=== PATIENT | female | born 1965 | race Caucasian/White ===

== ENCOUNTER 2024-12-18 08:32 | Outpatient (CLI) | payer MEDICARE, MEDICAID ==
[2024-12-18] VITALS (7 sets, daily range): BP systolic 128–145; BP diastolic 65–75; PULSE 87–105; RESP 18; O2SAT 97–100
[~2024-12-18] VITALS: Ht 162.6 cm; Wt 189.5 kg
[~2024-12-18 08:32] MED LIST: CHOL50004 PO; DOXE25CA3 PO; HYDR-3972 PO; LISI10TA27 PO; LORA1TAB PO; MONT-40 PO; ONDA-245 PO; ZOLP10TA5 PO
[2024-12-18] MEDS ORDERED: aminophylline 250mg/10ml inj. IV ONE (10:15)
[2024-12-18] MEDS: regadenoson 0.4mg/5ml syringe IV ONE (10:35)
--- NOTE | 2024-12-18 12:13 | RADIOLOGY REPORT ---
Procedure: NM NM JOLANTA SCAN Exam Date: 12/18/2024 08:51 AM Reason for study/Clinical History: ENCOUNTER FOR PREPROCEDURAL CARDIOVASCULAR EXAMINA Comparison Study: None Myocardial Perfusion Study with SPECT Technique: The patient received an intravenous injection of 8.6 mCi of technetium-99m sestamibi while at rest. After a short delay, SPECT tomographic images of the heart were obtained. The patient then went to the stress lab where they received an intravenous infusion of 0.[address] andard protocol. 33 mCi of technetium-99m sestamibi was injected intravenously immediately after the start of the lexiscan infusion. Gated SPECT tomographic images of the heart were acquired and processed. Findings: No reversible perfusion defect. End diastolic volume: 106 mL End systolic volume: 35 mL The left ventricular ejection fraction is 67 %. (normal greater than 50%) Impression: No reversible defect. The left ventricular ejection fraction is 67 %.
== END 2024-12-18 23:59 | disposition home or self-care (01) ==
LOC: NM 08:32
PROVIDERS: ATTEND Nurse Practitioner Family
DX: Z01.810 Encounter for preprocedural cardiovascular examination (principal); J45.40 Moderate persistent asthma, uncomplicated
CPT/HCPCS: 78452; 93017; A9500; J0280; J2785

== ENCOUNTER 2024-12-30 14:49 | Outpatient (CLI) | payer MEDICARE, MEDICAID ==
--- NOTE | 2024-12-30 18:48 | CARDIOLOGY REPORT ---
APPROVED REPORT EXAM: Comprehensive 2D, Doppler, and color-flow Echocardiogram. Patient Location: OUT-PATIENT Blood Pressure: 109 / 54 mmHg Heart Rate: 70-80's bpm Indications SHORT OF BREATH ASTHMA PRE-OP GASTRIC SLEEVE Transportation Broker: Abigail Rodriguez MD Previous echo: NONE 2D Dimensions RVDd 3.6 cm LVDd 5.3 cm LVOT Diameter 1.95 (1.8-2.4cm) M-Mode Dimensions Left Atrium(MM) 3.78 (2.5-4.0cm) IVSd 0.86 (0.7-1.1cm) LVDd 5.02 (4.0-5.6cm) Aortic Root 3.35 (2.2-3.7cm) PWd 1.08 (0.7-1.1cm) Aortic Cusp Exc 2.16 (1.5-2.0cm) IVSs 1.51 cm LVDs 3.11 (2.0-3.8cm) FS (%) 38 % PWs 1.51 cm ESV(Teich) 38.3 ml LVEF(%) 68 (>50%) Aortic Valve AoV Peak Tacho. 168.2 cm/s AoV VTI 31.0 cm AO Peak GR. 11.0 mmHg AO Mean GR. 6 mmHg LVOT VTI 23.18 cm LVOT Peak Tacho. 113.0 cm/s AXEL (VMAX) 2.01 cm2 AXEL (VTI) 2.23 cm2 Mitral Valve MV E Velocity 122.5 cm/s MV DECEL TIME 148 ms MV A Velocity 132.1 cm/s MV PHT 50 ms E/A Ratio 0.9 MVA (PHT) 4.44 cm2 Tricuspid Valve TR P. Velocity 258 cm/s RAP ESTIMATE 10 mmHg TR Peak Gr. 27 mmHg RVSP 37 mmHg LEFT VENTRICLE Normal LV size and wall thickness. Overall systolic function is normal. LVEF is 65-70%. RIGHT VENTRICLE RV is normal size and function. Thickened RV free wall. Elevated RVSP of 37 mmHg. ATRIA Left atrium is moderately dilated. AORTIC VALVE Aortic valve is not well visualized due to habitus. MITRAL VALVE Mild MV annular calcification without stenosis. Trace regurgitation. TRICUSPID VALVE TV appears structurally normal with trace regurgitation. PULMONIC VALVE Pulmonic valve is not well visualized. GREAT VESSELS Aortic root is normal in size. Ascending aorta is normal in size. PERICARDIUM Normal pericardium. Trivial effusion without hemodynamic compromise. Other Information Study Quality: Technically Difficult due to habitus, poor imaging windows Conclusion Normal LV size and wall thickness. Overall systolic function is normal. LVEF is 65-70%. RV is normal size and function. Thickened RV free wall. Elevated RVSP of 37 mmHg. Left atrium is moderately dilated. Aortic valve is not well visualized due to habitus. Mild MV annular calcification without stenosis. Trace regurgitation. TV appears structurally normal with trace regurgitation. Normal pericardium. Trivial effusion without hemodynamic compromise.
== END 2024-12-30 23:59 | disposition home or self-care (01) ==
LOC: RAD 14:49
PROVIDERS: ATTEND Nurse Practitioner Family
DX: Z01.810 Encounter for preprocedural cardiovascular examination (principal); J45.40 Moderate persistent asthma, uncomplicated; I34.81 Nonrheumatic mitral (valve) annulus calcification; G47.33 Obstructive sleep apnea (adult) (pediatric); E88.810 Metabolic syndrome; E66.813 Obesity, class 3
CPT/HCPCS: 93306